=== PATIENT | male | born 1960 | race Caucasian/White ===

== ENCOUNTER 2021-05-16 09:41 | Outpatient (REF) | payer BC, SELFPAY ==
--- NOTE | ~2021-05-16 | XR_ITS ---
EXAMINATION: XR BILATERAL KNEE AP STANDING. LATERAL AND SUNRISE VIEWS OF THE RIGHT KNEE. CLINICAL INFORMATION: Pain in unspecified knee COMPARISON: None TECHNIQUE: AP bilateral standing view of both knees, lateral view of the right knee, and sunrise view of the right knee were obtained. FINDINGS: Right knee: Bones and soft tissues are normal. No fracture or joint effusion. Alignment is anatomic. Joint spaces are well maintained. No abnormal soft tissue calcification. Left knee: Medial and lateral joint spaces are maintained. No fracture or dislocation seen. XR/XR knee RT 2V IMPRESSION: Normal knees.
--- NOTE | ~2021-05-16 | XR_ITS ---
EXAMINATION: XR BILATERAL KNEE AP STANDING. LATERAL AND SUNRISE VIEWS OF THE RIGHT KNEE. CLINICAL INFORMATION: Pain in unspecified knee COMPARISON: None TECHNIQUE: AP bilateral standing view of both knees, lateral view of the right knee, and sunrise view of the right knee were obtained. FINDINGS: Right knee: Bones and soft tissues are normal. No fracture or joint effusion. Alignment is anatomic. Joint spaces are well maintained. No abnormal soft tissue calcification. Left knee: Medial and lateral joint spaces are maintained. No fracture or dislocation seen. XR/XR knee standing BI IMPRESSION: Normal knees.
== END 2021-05-16 09:42 | disposition home or self-care (01) ==
LOC: HO.HOSX 09:41
PROVIDERS: Visit Provider Orthopaedic Surgery
DX: M25.561 Pain in right knee (principal)
CPT/HCPCS: 73560; 73565

== ENCOUNTER → 2021-06-23 15:32 | Outpatient (BNVA) | payer BC, SELFPAY | PROVIDERS: PCP Internal Medicine; Visit Provider Internal Medicine ==

== ENCOUNTER 2021-07-09 10:30 | Outpatient (REF) | payer BC, SELFPAY ==
--- NOTE | ~2021-07-09 | XR_ITS ---
EXAMINATION: SIMS AND LATERAL VIEW OF THE SINUSES CLINICAL INFORMATION: Pre-MRI for metal in eyes COMPARISON: None TECHNIQUE: Sims and lateral view paranasal sinuses. FINDINGS: Paranasal sinuses appear well aerated without air-fluid levels. No bony destruction is evident. No metallic radial opaque foreign bodies are identified about the orbits. XR/XR pre mri screening IMPRESSION: No metallic foreign body seen about the orbits.
--- NOTE | ~2021-07-09 | MR_ITS ---
EXAMINATION: MR KNEE WITHOUT CONTRAST, RIGHT CLINICAL INFORMATION: Pain in right knee. Patient reports medial symptoms for a couple of months, pain with movement, no recent injury and no previous surgery. COMPARISON: XR right knee 05/16/2021. TECHNIQUE: MRI of the knee without contrast was performed using routine sequences on a high-field scanner. FINDINGS: MENISCI: Medial Meniscus: There is a vertical longitudinal tear in the posterior horn of the medial meniscus. This is obliquely oriented and involves the inner margin of the posterior horn more toward the posterior root and the midportion more medially. There is extension to the superior surface. There may be subtle extension to the inferior surface as well. There is some patchy intrasubstance degenerative signal in the posterior horn extending to the junction with the body. There is an additional horizontal and slightly oblique tear at the junction of the posterior horn and body extending to the mid inferior surface. Lateral Meniscus: There is mild fraying of the undersurface of the junction of the posterior horn and root. There is degeneration and fraying of the inner margin of the junction of the anterior horn and root. There is suggestion of subtle tearing of the superior surface of the anterior root with an adjacent small multiloculated parameniscal cyst. LIGAMENTS: Cruciate: Intact. Collateral: Intact. EXTENSOR MECHANISM: The quadriceps and patellar tendons are intact. There is focal edema in the superolateral aspect of Hoffa's fat pad suggesting patellar tendon-lateral femoral condyle friction syndrome. ARTICULAR CARTILAGE/BONE: Patellofemoral Compartment: There are patchy areas of minor cartilage surface irregularity in the patella. There are patchy areas of mild cartilage surface irregularity and thinning in the lateral aspect of the lateral femoral trochlea and focal [id number] cartilage thinning in the central femoral trochlea. Medial Compartment: There are patchy areas of mild cartilage thinning in the weightbearing medial compartment. Lateral Compartment: Normal. JOINT FLUID AND BURSAE: Small joint effusion and tiny Daley's cyst. MR/MR knee RT wo con IMPRESSION: 1. Somewhat complex tearing of the posterior horn of the medial meniscus extending to the junction with the body. 2. Fraying of the undersurface of the junction of the posterior horn and root of the lateral meniscus. Fraying of the inner margin of the junction of the anterior horn and root and possible subtle superior surface tear of the anterior root with adjacent small multiloculated parameniscal cyst. 3. There is focal edema in the superolateral aspect of Hoffa's fat pad suggesting patellar tendon-lateral femoral condyle friction syndrome. 4. Mild patellofemoral and medial compartment arthrosis. 5. Small joint effusion and tiny Daley's cyst.
== END 2021-07-09 10:31 | disposition home or self-care (01) ==
LOC: HO.MRI 10:30
PROVIDERS: Visit Provider Internal Medicine
DX: M25.561 Pain in right knee (principal)
CPT/HCPCS: 73721

== ENCOUNTER → 2021-08-28 08:53 | Outpatient (BNVA) | payer OTHER, SELFPAY | PROVIDERS: PCP Internal Medicine; Visit Provider Internal Medicine | DX: Z13.89 Encounter for screening for other disorder (principal) | CPT/HCPCS: 12013; 99203 ==

== ENCOUNTER → 2021-09-01 09:05 | Outpatient (BNVA) | payer OTHER, SELFPAY | PROVIDERS: PCP Internal Medicine; Visit Provider Internal Medicine | DX: Z13.89 Encounter for screening for other disorder (principal) | CPT/HCPCS: 99213 ==

== ENCOUNTER → 2021-09-02 12:47 | Outpatient (BNVA) | payer OTHER, SELFPAY | PROVIDERS: PCP Internal Medicine; Visit Provider Internal Medicine | DX: Z13.89 Encounter for screening for other disorder (principal) | CPT/HCPCS: 99212; 99213 ==

== ENCOUNTER 2022-08-25 07:40 | Day surgery (SDC) | payer OTHER, SELFPAY ==
--- NOTE | 2022-08-24 10:06 | HO.ANESPROP2 ---
Documented by User: Yoon Hazel NP 08/24/22 10:09 HPI - Anesthesia Eval Consult details Narrative: 61yo M for Colonoscopy [facility] Active Problems Active Problems: All Active Problems (Updated 08/24/22 @ 09:09 by Kathleen Motley RN) Right knee pain (Acute) Past Medical History Medical History HTN (hypertension) Hyperplastic colon polyp Surgical History Surgical History H/O colonoscopy H/O knee surgery Social History Social History (Updated 05/16/21 @ 10:55 by YOUNG Rueda) Patient Tobacco Use Status: Former Tobacco user Are you DNR?: No Advance Directives: No Advance Directives Information Provided: Yes Nutrition Risks: No Nutritional Risk Current occupational status: employed 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 Allergies Allergy/AdvReac Type Severity Reaction Status Date / Time No Known Allergies Allergy Unknown Verified 08/25/22 08:21 Home Medications Medication Instructions Recorded Confirmed Last Taken Type lisinopril 20 1 tab PO DAILY 08/24/22 08/24/22 08/24/22 History mg-hydrochlorothiazide 12.5 mg tablet Exam Exam Date and Time: August 24, 2022 1006 Assessment and Plan Assessment Anesthesia Assessment: Chart Reviewed Documented by User: Omid Sheikh MD 08/25/22 16:50 [facility] Past Medical History Medical History HTN (hypertension) Hyperplastic colon polyp Family History Family history of problems with anesthesia: No Surgical History Surgical History H/O colonoscopy H/O knee surgery History of Problems with Anesthesia: No Social History Social History (Updated 05/16/21 @ 10:55 by YOUNG Rueda) Patient Tobacco Use Status: Former Tobacco user Are you DNR?: No Advance Directives: No Advance Directives Information Provided: Yes Nutrition Risks: No Nutritional Risk Current occupational status: employed 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 Allergies Allergy/AdvReac Type Severity Reaction Status Date / Time No Known Allergies Allergy Unknown Verified 08/25/22 08:21 Home Medications Medication Instructions Recorded Confirmed Last Taken Type lisinopril 20 1 tab PO DAILY 08/24/22 08/24/22 08/24/22 History mg-hydrochlorothiazide 12.5 mg tablet Exam Airway Mallampati Class: IV TM Dist: >3cm Neck ROM: Full Loose/Missing/Broken Teeth: Yes (Poor dentition overall , fillings ) Heart: S1,S2 Lungs: b/l breath sounds Assessment and Plan Assessment Anesthesia Assessment: Anesthesia Plan Discussed Final Anesthetic Review Family History of Problems with Anesthesia: No History of Problems with Anesthesia: No NPO: Yes ASA Class: II Final Preanesthetic Review: Meds/Allgs Chart Reviewed, Consent Obtained/Reviewed and Anes Risks/Benef Reviewed Patient Risk: Intermediate Procedure Risk: Intermediate Anesthetic Plan Anesthetic Plan: MAC: Disposition: Standard PACU
[2022-08-25 07:54] VITALS: BMI 34.7
[2022-08-25 07:55] VITALS: BP 202/106
[2022-08-25 08:05] VITALS: BP 183/97
[2022-08-25] MEDS: Lactated Ringers 1,000 ML 100 ML IVCONT (08:19)
[2022-08-25 08:20] VITALS: BP 155/99; PULSE 83; RESP 18; TEMP 36.3; O2SAT 98
--- NOTE | 2022-08-25 08:44 | MHC.SHP ---
Pre-Procedural Eval Section A Date of Service: 08/25/22 Section B Chief Complaint: screening Details of Present Illness: see H*P, no changes Relevant Family History (Specify if Yes): No Relevant Social History: None Present Medications: see Short Stay Collaborative assessment Medical History: No relevant PMH History of Previous Operations: No relevant previous surgery Allergies: Allergies Allergy/AdvReac Type Severity Reaction Status Date / Time No Known Allergies Allergy Unknown Verified 08/25/22 08:21 Review of Systems Sugical H&P ROS: Negative: Constitution, Cardiovascular, Respiratory, Neurological, Psychiatric, Hem-Onc, Allergic/Immunologic, Gastrointestinal, Genitourinary, Musculoskeletal, Integumentary, Endocrine and Eyes/Ears/Nose/Throat Exam Surgical H&P Exam: Normal: HEENT, Normal: Heart, Normal: Lungs, Normal: Extremities, Normal: Abdomen, Normal: Skin and Normal: Neurological Plan Diagnosis/Plan: Unchanged I have reviewed the history and physical and performed a pertinent physical examination on my patient. No changes have occurred unless specified. Time Spent With Patient Time: Total time managing care of this patient today ____ minutes.
--- NOTE | 2022-08-25 09:16 | PM.OP ---
Brief Operative Note Date of Service: 08/25/22 Pre-op diagnosis: screening Post-op diagnosis: same Surgeon: Eagle Lockett Anesthesia: MAC Was an [employer] used for this Procedure?: No Estimated blood loss (mL): 2 Pathology: other Condition: stable Disposition: PACU
[2022-08-25 09:19] VITALS: BP 91/50; PULSE 79; RESP 16; TEMP 36.4; O2SAT 98
[2022-08-25 09:34] VITALS: BP 124/78; PULSE 70; RESP 18; TEMP 36.4; O2SAT 95
--- NOTE | 2022-08-25 09:39 | OP_ITS ---
SURGEON: Eagle Lockett MD INDICATIONS: Colon cancer screening. PREOPERATIVE DIAGNOSIS: POSTOPERATIVE DIAGNOSIS: PROCEDURE PERFORMED: Colonoscopy to the terminal ileum. ESTIMATED BLOOD LOSS: COMPLICATIONS: ANESTHESIA: Monitored anesthesia care. ASSISTANTS: SPECIMENS: DESCRIPTION OF PROCEDURE: The procedure was performed on 08/25/2022. A history and physical was performed. The risks and benefits of the procedure were explained to the patient and informed consent was obtained. The patient was placed in a left lateral decubitus position. A digital rectal exam was performed and was found to be normal. The Olympus pediatric video colonoscope was introduced into the rectum and advanced to the cecum without difficulty. The cecum was identified by transillumination, palpation, and identification of ileocecal valve. Examination was performed. The scope was removed. He tolerated the procedure well and was taken to Recovery in stable condition. FINDINGS: The terminal ileum was briefly glimpsed, but not fully examined. The visualized colonic mucosa was normal. The quality of the prep was good. A single polyp in the cecum measuring less than 5 mm was removed with biopsy forceps. Retroflexed examination showed small internal hemorrhoids. IMPRESSION: Colon polyp. RECOMMENDATION: Follow up the biopsy results. MD ALVAREZ Ramos/IZAIAH / [id number]
== END 2022-08-25 10:15 | disposition home or self-care (01) ==
PROVIDERS: PCP Internal Medicine; Visit Provider Internal Medicine Gastroenterology
PROC: 0DJD8ZZ Inspection of Lower Intestinal Tract, Via Natural or Artificial Opening Endoscopic (ICD-10-PCS; CPT 45378; principal; 2022-08-25 08:50)
DX: Z12.11 Encounter for screening for malignant neoplasm of colon (principal); Z83.71 Family history of colonic polyps; D12.0 Benign neoplasm of cecum; K64.8 Other hemorrhoids; I10 Essential (primary) hypertension; Z79.899 Other long term (current) drug therapy
CPT/HCPCS: 45380; 88305